=== PATIENT | male | born 1950 | race Caucasian/White ===

== ENCOUNTER 2018-05-21 11:43 | Inpatient (IN) | payer MEDICARE ==
[~2018-05-21] VITALS: Ht 167.6 cm; Wt 70.7 kg
[~2018-05-21 11:43] MED LIST: ACET325T14 PO; ALLO300T PO; CEFD300C37 PO; CYCL5TAB PO; GLIP5TAB10 PO; HYDR-3240 PO; LEVO125T PO; LOSA25TA25 PO; METF10002 PO; METO25TA35 PO; OMEP40CA6 PO; OXYC1TAB7 PO; SITA100T PO; TAMS-11 PO; UBID100C24 PO; metoprolol
[2018-05-21] MEDS ORDERED: SODIUM CHLORIDE FLUSH 10ML SYR IVF ONE (12:00)
[2018-05-21 12:25] LABS: MEAN CORPUSCULAR HEMOGLOBIN 30.3 pg (27.5-34.5); MEAN CORPUSCULAR HGB CONC 33.2 g/dL (33.2-36.2); MEAN CORPUSCULAR VOLUME 91.3 fL (81-97); MEAN PLATELET VOLUME 8.4 fL (7.4-10.4); PLATELET COUNT 428 x10^3/uL (130-400); RED CELL DISTRIBUTION WIDTH 13.6 % (9.4-14.8)
[2018-05-21] MEDS ORDERED: ONDANSETRON 2MG/ML, 2ML ONE (12:28)
[2018-05-21] MEDS ORDERED: HYDROmorphone 1 MG/ML, 1ML VIAL ONE (12:29)
[2018-05-21] MEDS ORDERED: HYDROmorphone 2 MG/ML, 1ML IVPush PRN (12:30)
[2018-05-21] MEDS ORDERED: ONDANSETRON 2MG/ML, 2ML IVPush ONE (12:30)
[2018-05-21 12:31] LABS: ALANINE AMINOTRANSFERASE 44 U/L (12-78); ANION GAP 9 mmol/L (5-15); CALCIUM 9.2 mg/dL (8.5-10.1); CHLORIDE 106 mmol/L (98-107); CREATININE 0.99 mg/dL (0.7-1.3)
[2018-05-21 12:33] LABS: ALKALINE PHOSPHATASE 128 U/L (45-117); BILIRUBIN,TOTAL 0.5 mg/dL (0.2-1.0); TOTAL PROTEIN 7.8 g/dL (6.4-8.2)
[2018-05-21 12:50] LABS: MD YES
[2018-05-21 12:53] LABS: <PLATELET ESTIMATE> INCREASED; <PLT MORPHOLOGY> NORMAL PLT MORPH; <RBC MORPHOLOGY> NORMAL; BANDS%(MANUAL) 16 % (0-7); LYMPH#(MANUAL) 0.52 x10^3/uL (1-3.4); LYMPHS% (MANUAL) 4 % (22-44); MONOS#(MANUAL) 0.92 x10^3/uL (0.3-2.7); MONOS% (MANUAL) 7 % (2-9); SEG#(MANUAL) 9.56 x10^3/uL (1.8-6.8); SEGS% (MANUAL) 73 % (42-75)
[2018-05-21] MEDS ORDERED: SODIUM CHLORIDE FLUSH 10ML SYR IVF PRN (14:30)
[2018-05-21] MEDS ORDERED: DEXTROSE 50%, 50ML SYRINGE IVPush PRN (15:30)
[2018-05-21] MEDS ORDERED: ONDANSETRON 2MG/ML, 2ML IVPush PRN (15:30)
[2018-05-21] MEDS ORDERED: ONDANSETRON ODT 4 MG PO PRN (15:30)
[2018-05-21] MEDS ORDERED: METHOCARBAMOL 500 MG TABLET PO PRN (15:30)
[2018-05-21] MEDS ORDERED: LABETALOL 5MG/ML, 20ML IVPush PRN (15:30)
[2018-05-21] MEDS ORDERED: morphine SULFATE 10 MG/ML, 1ML IVPush PRN (15:30)
[2018-05-21] MEDS ORDERED: CEFTRIAXONE PMX 2GM/50ML 50 ML ONE (15:30)
[2018-05-21] MEDS ORDERED: POLYETHYLENE GLYCOL 17 GM PACKET PO PRN (15:30)
[2018-05-21] MEDS ORDERED: DEXTROSE 4 GM TAB.CHEW PO PRN (15:30)
[2018-05-21] MEDS ORDERED: ENALAPRILAT 1.25 MG/ML, 2ML IVPush PRN (15:30)
[2018-05-21] MEDS ORDERED: GLUCAGON 1 MG IM PRN (15:30)
[2018-05-21] MEDS ORDERED: BISACODYL 10 MG SUPP PR PRN (15:30)
[2018-05-21] MEDS: CEFTRIAXONE PMX 2GM/50ML 50 ML IV SCH ×2 (15:35→17:03)
--- NOTE | 2018-05-21 15:42 | NUR ---
LATE NOTE 1430 DISCUSSION REGARDING NS BOLUS AND ABX WITH NO NEW ORDERS RECIEVED.
[2018-05-21 16:10] LABS: MICROSCOPIC NOT IND
[2018-05-21 16:12] LABS: CULTURE INDICATED? NO
[2018-05-21 16:24] VITALS: BP 130/79
[2018-05-21 16:58] LABS: TROPONIN I < 0.015 ng/mL (0.000-0.045)
[2018-05-21] MEDS: HYDROcodone/APAP 5/325 TABLET PO PRN (17:02)
[2018-05-21] MEDS: SODIUM CHLORIDE 0.9% 1,000 ML IV SCH (17:03)
[2018-05-21] MEDS: METRONIDAZOLE PMX 500MG/100ML 100 ML IV SCH (17:03)
[2018-05-21 17:15] VITALS: BP 130/79
[2018-05-21] MEDS: INSULIN LISPRO 100 UNITS/ML, PEN SQ-INSULIN SCH ×2 (18:00→20:55)
[2018-05-21 19:04] VITALS: BP 116/78
[2018-05-21 20:45] VITALS: BP 126/88
[2018-05-21] MEDS: METOPROLOL TARTRATE 25 MG TABLET PO SCH (20:52)
[2018-05-21] MEDS: ENOXAPARIN 40 MG/0.4 ML SQ SCH (20:54)
[2018-05-21] MEDS: DOCUSATE 100 MG CAPSULE PO SCH (20:57)
[2018-05-21] MEDS: SODIUM CHLORIDE FLUSH 10ML SYR IVF SCH (20:57)
[2018-05-22] MEDS: METRONIDAZOLE PMX 500MG/100ML 100 ML IV SCH (00:22)
[2018-05-22] MEDS: HYDROcodone/APAP 5/325 TABLET PO PRN (00:24)
[2018-05-22 00:29] VITALS: BP 122/80
[2018-05-22] MEDS: SODIUM CHLORIDE 0.9% 1,000 ML IV SCH ×2 (03:01→13:51)
[2018-05-22 04:57] LABS: BASOPHILS % (AUTO) 0 % (0-1); EOSINOPHILS % (AUTO) 0 % (1-7); LYMPHOCYTES % (AUTO) 5 % (22-44); MD NO; MEAN CORPUSCULAR HEMOGLOBIN 31.6 pg (27.5-34.5); MEAN CORPUSCULAR HGB CONC 34.2 g/dL (33.2-36.2); MEAN CORPUSCULAR VOLUME 92.2 fL (81-97); MEAN PLATELET VOLUME 8.5 fL (7.4-10.4); MONOCYTES # (AUTO) 0.72 x10^3/uL (0.2-0.8); MONOCYTES % (AUTO) 5 % (2-9); NEUTROPHILS # (AUTO) 14.06 x10^3/uL (1.8-6.8); NEUTROPHILS % (AUTO) 91 % (42-75); PLATELET COUNT 360 x10^3/uL (130-400); RED BLOOD COUNT 4.07 x10^6/uL (4.38-5.82)
[2018-05-22 05:10] LABS: CHLORIDE 109 mmol/L (98-107)
[2018-05-22 05:20] LABS: ALANINE AMINOTRANSFERASE 30 U/L (12-78); ALBUMIN 2.3 g/dL (3.4-5.0); ALKALINE PHOSPHATASE 100 U/L (45-117); ANION GAP 6 mmol/L (5-15); BILIRUBIN,TOTAL 0.5 mg/dL (0.2-1.0); CALCIUM 8.7 mg/dL (8.5-10.1); CREATININE 1.22 mg/dL (0.7-1.3); TOTAL PROTEIN 6.3 g/dL (6.4-8.2)
[2018-05-22] MEDS: INSULIN LISPRO 100 UNITS/ML, PEN SQ-INSULIN SCH ×4 (07:00→21:08)
[2018-05-22 07:08] VITALS: BP 113/67
[2018-05-22] MEDS: DOCUSATE 100 MG CAPSULE PO SCH ×2 (08:00→21:25)
[2018-05-22] MEDS: SODIUM CHLORIDE FLUSH 10ML SYR IVF SCH ×2 (08:20→21:25)
[2018-05-22] MEDS: PIPERACILLIN/TAZO/PMX 3.375GM 50 ML IV SCH ×2 (11:21→20:34)
[2018-05-22] MEDS: LEVOTHYROXINE 125 MCG TABLET PO SCH (11:44)
[2018-05-22] MEDS: METOPROLOL TARTRATE 25 MG TABLET PO SCH ×2 (11:44→21:07)
[2018-05-22] MEDS: ALLOPURINOL 300 MG TABLET PO SCH (11:44)
[2018-05-22] MEDS: LOSARTAN 25MG TABLET PO SCH (11:44)
[2018-05-22] MEDS: FAMOTIDINE 20 MG/2 ML IVPush SCH ×2 (12:03→21:07)
[2018-05-22 13:16] VITALS: BP 150/86
[2018-05-22 18:52] LABS: CLOSTRIDIUM DIFFICILE ANTIGEN NEGATIVE; CLOSTRIDIUM DIFFICILE TOXIN NEGATIVE (Negative)
[2018-05-22 20:19] VITALS: BP 143/83
[2018-05-22] MEDS: ACETAMINOPHEN 325 MG TABLET PO PRN (21:07)
[2018-05-22] MEDS: ENOXAPARIN 40 MG/0.4 ML SQ SCH (21:25)
[2018-05-22 23:39] VITALS: BP 118/71
[2018-05-23 00:29] VITALS: BP 121/76
[2018-05-23] MEDS: SODIUM CHLORIDE 0.9% 1,000 ML IV SCH (01:43)
[2018-05-23] MEDS: PIPERACILLIN/TAZO/PMX 3.375GM 50 ML IV SCH ×3 (03:39→22:28)
[2018-05-23 06:55] LABS: MEAN CORPUSCULAR HEMOGLOBIN 31.3 pg (27.5-34.5); MEAN CORPUSCULAR HGB CONC 33.8 g/dL (33.2-36.2); MEAN CORPUSCULAR VOLUME 92.7 fL (81-97); MEAN PLATELET VOLUME 8.6 fL (7.4-10.4); PLATELET COUNT 364 x10^3/uL (130-400); RED BLOOD COUNT 3.54 x10^6/uL (4.38-5.82); RED CELL DISTRIBUTION WIDTH 14.4 % (9.4-14.8)
[2018-05-23 07:07] LABS: ALANINE AMINOTRANSFERASE 24 U/L (12-78); ALBUMIN 2.1 g/dL (3.4-5.0); ANION GAP 7 mmol/L (5-15); CALCIUM 8.5 mg/dL (8.5-10.1); CHLORIDE 112 mmol/L (98-107); CREATININE 0.91 mg/dL (0.7-1.3)
[2018-05-23 07:09] LABS: ALKALINE PHOSPHATASE 94 U/L (45-117); BILIRUBIN,TOTAL 0.7 mg/dL (0.2-1.0)
[2018-05-23 07:35] LABS: MD YES
[2018-05-23 07:38] LABS: <PLATELET ESTIMATE> ADEQUATE; <PLT MORPHOLOGY> NORMAL PLT MORPH; <RBC MORPHOLOGY> NORMAL; BAND#(MANUAL) 1.07 x10^3/uL; BANDS%(MANUAL) 6 % (0-7); LYMPH#(MANUAL) 1.25 x10^3/uL (1-3.4); LYMPHS% (MANUAL) 7 % (22-44); MONOS#(MANUAL) 0.89 x10^3/uL (0.3-2.7); MONOS% (MANUAL) 5 % (2-9); SEGS% (MANUAL) 82 % (42-75)
[2018-05-23 07:51] VITALS: BP 124/68
[2018-05-23] MEDS: SODIUM CHLORIDE FLUSH 10ML SYR IVF SCH ×2 (09:00→22:28)
[2018-05-23] MEDS: DOCUSATE 100 MG CAPSULE PO SCH ×2 (09:00→21:00)
[2018-05-23] MEDS: LOSARTAN 25MG TABLET PO SCH (10:04)
[2018-05-23] MEDS: LEVOTHYROXINE 125 MCG TABLET PO SCH (10:04)
[2018-05-23] MEDS: PANTOPRAZOLE 40 MG IV IVPush SCH (10:05)
[2018-05-23] MEDS: METOPROLOL TARTRATE 25 MG TABLET PO SCH ×2 (10:05→22:29)
[2018-05-23] MEDS: FAMOTIDINE 20 MG/2 ML IVPush SCH ×2 (10:05→22:28)
[2018-05-23] MEDS: INSULIN LISPRO 100 UNITS/ML, PEN SQ-INSULIN SCH ×4 (10:06→22:41)
[2018-05-23] MEDS: HEPARIN 5,000 UNITS/ML, 1ML SQ SCH ×2 (10:31→22:28)
[2018-05-23] MEDS: ALLOPURINOL 300 MG TABLET PO SCH (10:32)
[2018-05-23 14:01] VITALS: BP 124/70
[2018-05-23] MEDS ORDERED: BUPIVACAINE/PF-EPI 0.5% 1:200K ONE (14:40)
[2018-05-23] MEDS ORDERED: SODIUM CHLORIDE 0.9% 1,000 ML IV SCH (15:09)
[2018-05-23] MEDS ORDERED: MIDAZOLAM 1 MG/ML, 2ML ONE (15:16)
[2018-05-23] MEDS ORDERED: FENTANYL PF 250 MCG/5ML ONE (15:16)
[2018-05-23] MEDS ORDERED: HALOPERIDOL 5 MG/ML IV PRN (16:00)
[2018-05-23] MEDS ORDERED: hydrALAzine 20 MG/ML, 1ML IV PRN (16:00)
[2018-05-23] MEDS ORDERED: MEPERIDINE/PF 25MG/0.5ML IVPush PRN (16:00)
[2018-05-23] MEDS ORDERED: FENTANYL PF 100 MCG/2ML IV PRN (16:00)
[2018-05-23] MEDS ORDERED: PROMETHAZINE 25 MG/ML, 1ML IV PRN (16:00)
[2018-05-23] MEDS ORDERED: OXYcodone 5 MG/5 ML ORAL.SOL UDC PO PRN (16:00)
[2018-05-23] MEDS ORDERED: HYDROmorphone 2 MG/ML, 1ML IVPush PRN (16:00)
[2018-05-23] MEDS ORDERED: MEPERIDINE/PF 50 MG/ML ONE (16:12)
[2018-05-23] MEDS ORDERED: METOPROLOL 1 MG/ML, 5ML ONE (16:30)
[2018-05-23] MEDS ORDERED: ONDANSETRON 2MG/ML, 2ML ONE (16:30)
[2018-05-23] MEDS ORDERED: PROPOFOL 10 MG/ML, 20ML ONE (16:30)
[2018-05-23] MEDS ORDERED: LIDOCAINE-MPF 2% ,5ML ONE (16:30)
[2018-05-23] MEDS ORDERED: ROCURONIUM 10MG/ML,5ML ONE (16:30)
[2018-05-23] MEDS ORDERED: DEXAMETHASONE 4 MG/ML, 1ML ONE (16:30)
[2018-05-23] MEDS ORDERED: FENTANYL PF 100 MCG/2ML ONE (16:37)
[2018-05-23] MEDS ORDERED: OXYcodone 5 MG/5 ML ORAL.SOL UDC ONE (17:13)
[2018-05-23 20:06] VITALS: BP 126/72
[2018-05-24 00:52] VITALS: BP 127/78
[2018-05-24 03:41] VITALS: BP 125/74
[2018-05-24] MEDS: PIPERACILLIN/TAZO/PMX 3.375GM 50 ML IV SCH ×3 (06:00→23:36)
[2018-05-24] MEDS: HEPARIN 5,000 UNITS/ML, 1ML SQ SCH ×3 (06:01→23:36)
[2018-05-24 06:58] LABS: ALANINE AMINOTRANSFERASE 23 U/L (12-78); ALBUMIN 1.9 g/dL (3.4-5.0); ANION GAP 7 mmol/L (5-15); CALCIUM 8.4 mg/dL (8.5-10.1); CHLORIDE 111 mmol/L (98-107)
[2018-05-24 07:00] LABS: ALKALINE PHOSPHATASE 113 U/L (45-117); BILIRUBIN,TOTAL 0.4 mg/dL (0.2-1.0); TOTAL PROTEIN 5.9 g/dL (6.4-8.2)
[2018-05-24 08:23] LABS: MEAN CORPUSCULAR HEMOGLOBIN 30.6 pg (27.5-34.5); MEAN CORPUSCULAR HGB CONC 33.1 g/dL (33.2-36.2); MEAN CORPUSCULAR VOLUME 92.2 fL (81-97); MEAN PLATELET VOLUME 8.4 fL (7.4-10.4); PLATELET COUNT 432 x10^3/uL (130-400); RED BLOOD COUNT 3.72 x10^6/uL (4.38-5.82); RED CELL DISTRIBUTION WIDTH 14.3 % (9.4-14.8)
[2018-05-24] MEDS: INSULIN LISPRO 100 UNITS/ML, PEN SQ-INSULIN SCH ×4 (08:43→21:46)
[2018-05-24] MEDS: FAMOTIDINE 20 MG/2 ML IVPush SCH ×2 (08:44→21:54)
[2018-05-24] MEDS: PANTOPRAZOLE 40 MG IV IVPush SCH (08:44)
[2018-05-24] MEDS: LOSARTAN 25MG TABLET PO SCH (08:45)
[2018-05-24] MEDS: DOCUSATE 100 MG CAPSULE PO SCH ×3 (08:45→21:46)
[2018-05-24] MEDS: LEVOTHYROXINE 125 MCG TABLET PO SCH (08:45)
[2018-05-24] MEDS: ALLOPURINOL 300 MG TABLET PO SCH (08:45)
[2018-05-24] MEDS: SODIUM CHLORIDE FLUSH 10ML SYR IVF SCH ×3 (08:46→21:54)
[2018-05-24 08:50] LABS: BASOPHILS % (AUTO) 0 % (0-1); EOSINOPHILS % (AUTO) 0 % (1-7); LYMPHOCYTES # (AUTO) 0.39 x10^3/uL (1-3.4); LYMPHOCYTES % (AUTO) 2 % (22-44); MD SCAN; MONOCYTES # (AUTO) 0.47 x10^3/uL (0.2-0.8); MONOCYTES % (AUTO) 3 % (2-9); NEUTROPHILS # (AUTO) 14.95 x10^3/uL (1.8-6.8); NEUTROPHILS % (AUTO) 95 % (42-75)
[2018-05-24] MEDS ORDERED: metFORMIN 500 MG TABLET PO SCH (09:00)
[2018-05-24] MEDS: METOPROLOL TARTRATE 25 MG TABLET PO SCH ×2 (09:00→21:46)
[2018-05-24 10:00] VITALS: BP 117/66
[2018-05-24 15:39] VITALS: BP 116/68
[2018-05-24 19:21] VITALS: BP 103/58
[2018-05-24] MEDS ORDERED: DEXTROSE 50%, 50ML SYRINGE IVPush PRN (20:30)
[2018-05-24] MEDS ORDERED: DEXTROSE 4 GM TAB.CHEW PO PRN (20:30)
[2018-05-24] MEDS ORDERED: GLUCAGON 1 MG IM PRN (20:30)
[2018-05-24] MEDS: D5%-0.45% NACL 1,000 ML IV SCH (21:55)
[2018-05-25 01:13] VITALS: BP 129/74
[2018-05-25 06:22] LABS: CHLORIDE 110 mmol/L (98-107)
[2018-05-25 06:37] LABS: ALANINE AMINOTRANSFERASE 21 U/L (12-78); ALKALINE PHOSPHATASE 87 U/L (45-117); ANION GAP 8 mmol/L (5-15); BILIRUBIN,TOTAL 0.4 mg/dL (0.2-1.0); CALCIUM 8.6 mg/dL (8.5-10.1); CREATININE 0.85 mg/dL (0.7-1.3); TOTAL PROTEIN 6.1 g/dL (6.4-8.2)
[2018-05-25 06:38] LABS: MEAN CORPUSCULAR HEMOGLOBIN 31.2 pg (27.5-34.5); MEAN CORPUSCULAR HGB CONC 34.3 g/dL (33.2-36.2); MEAN CORPUSCULAR VOLUME 91.1 fL (81-97); MEAN PLATELET VOLUME 8.4 fL (7.4-10.4); PLATELET COUNT 427 x10^3/uL (130-400); RED BLOOD COUNT 3.61 x10^6/uL (4.38-5.82); RED CELL DISTRIBUTION WIDTH 14.5 % (9.4-14.8)
[2018-05-25 07:00] VITALS: BP 128/75
[2018-05-25 07:15] LABS: BASOPHILS # (AUTO) 0.01 x10^3/uL (0-0.1); BASOPHILS % (AUTO) 0 % (0-1); EOSINOPHILS # (AUTO) 0.16 x10^3/uL (0-0.4); EOSINOPHILS % (AUTO) 2 % (1-7); LYMPHOCYTES # (AUTO) 0.88 x10^3/uL (1-3.4); LYMPHOCYTES % (AUTO) 10 % (22-44); MD SCAN; MONOCYTES # (AUTO) 0.65 x10^3/uL (0.2-0.8); MONOCYTES % (AUTO) 7 % (2-9); NEUTROPHILS # (AUTO) 7.33 x10^3/uL (1.8-6.8); NEUTROPHILS % (AUTO) 81 % (42-75)
[2018-05-25] MEDS: INSULIN LISPRO 100 UNITS/ML, PEN SQ-INSULIN SCH ×4 (07:40→20:52)
[2018-05-25] MEDS: HEPARIN 5,000 UNITS/ML, 1ML SQ SCH ×3 (07:41→23:25)
[2018-05-25] MEDS: PIPERACILLIN/TAZO/PMX 3.375GM 50 ML IV SCH ×3 (07:41→23:24)
[2018-05-25] MEDS: PANTOPRAZOLE 40 MG IV IVPush SCH (07:42)
[2018-05-25] MEDS: FAMOTIDINE 20 MG/2 ML IVPush SCH ×2 (07:42→20:51)
[2018-05-25] MEDS: SODIUM CHLORIDE FLUSH 10ML SYR IVF SCH ×4 (07:43→20:58)
[2018-05-25] MEDS: D5%-0.45% NACL 1,000 ML IV SCH ×2 (07:44→21:53)
[2018-05-25] MEDS: DOCUSATE 100 MG CAPSULE PO SCH ×2 (09:00→20:52)
[2018-05-25] MEDS: ALLOPURINOL 300 MG TABLET PO SCH (09:00)
[2018-05-25] MEDS: LOSARTAN 25MG TABLET PO SCH (09:00)
[2018-05-25] MEDS: LEVOTHYROXINE 125 MCG TABLET PO SCH (09:00)
[2018-05-25] MEDS: METOPROLOL TARTRATE 25 MG TABLET PO SCH ×2 (09:00→20:52)
[2018-05-25] MEDS ORDERED: FENTANYL PF 100 MCG/2ML ONE (10:25)
[2018-05-25] MEDS ORDERED: FENTANYL PF 100 MCG/2ML IV PRN (10:30)
[2018-05-25] MEDS ORDERED: HYDROmorphone 2 MG/ML, 1ML IVPush PRN (10:30)
[2018-05-25] MEDS ORDERED: ONDANSETRON ODT 8 MG PO PRN (10:30)
[2018-05-25] MEDS ORDERED: ONDANSETRON 2MG/ML, 2ML IV PRN (10:30)
[2018-05-25] MEDS ORDERED: OXYcodone 5 MG/5 ML ORAL.SOL UDC PO PRN (10:30)
[2018-05-25] MEDS ORDERED: ACETAMINOPHEN 325 MG TABLET PO PRN (10:30)
[2018-05-25] MEDS ORDERED: ONDANSETRON 2MG/ML, 2ML ONE (10:43)
[2018-05-25] MEDS ORDERED: GLYCOPYRROLATE 0.2MG/1ML, 5ML ONE (10:43)
[2018-05-25] MEDS ORDERED: SUCCINYLCHOLINE 20 MG/ML, 10ML ONE (10:43)
[2018-05-25] MEDS ORDERED: ROCURONIUM 10MG/ML,5ML ONE (10:43)
[2018-05-25] MEDS ORDERED: PROPOFOL 10 MG/ML, 20ML ONE (10:43)
[2018-05-25] MEDS ORDERED: CEFAZOLIN 1,000 MG ONE (10:43)
[2018-05-25] MEDS ORDERED: DEXAMETHASONE 4 MG/ML, 1ML ONE (10:43)
[2018-05-25] MEDS ORDERED: NEOSTIGMINE 1 MG/ML, 10ML ONE (10:43)
[2018-05-25] MEDS ORDERED: OMNIPAQUE 350 MG/ML, 50 ML BOTTLE ONE (11:11)
[2018-05-25 13:39] VITALS: BP 147/80
[2018-05-25 20:13] VITALS: BP 139/79
[2018-05-25] MEDS: ACETAMINOPHEN 325 MG TABLET PO PRN (20:57)
[2018-05-26 01:48] VITALS: BP 142/86
[2018-05-26 05:50] LABS: BASOPHILS # (AUTO) 0.01 x10^3/uL (0-0.1); BASOPHILS % (AUTO) 0 % (0-1); EOSINOPHILS # (AUTO) 0.03 x10^3/uL (0-0.4); EOSINOPHILS % (AUTO) 0 % (1-7); LYMPHOCYTES % (AUTO) 9 % (22-44); MD NO; MEAN CORPUSCULAR HEMOGLOBIN 30.6 pg (27.5-34.5); MEAN CORPUSCULAR HGB CONC 33.9 g/dL (33.2-36.2); MEAN CORPUSCULAR VOLUME 90.4 fL (81-97); MEAN PLATELET VOLUME 8.2 fL (7.4-10.4); MONOCYTES # (AUTO) 0.66 x10^3/uL (0.2-0.8); MONOCYTES % (AUTO) 9 % (2-9); NEUTROPHILS # (AUTO) 6.26 x10^3/uL (1.8-6.8); NEUTROPHILS % (AUTO) 82 % (42-75); PLATELET COUNT 479 x10^3/uL (130-400); RED BLOOD COUNT 3.91 x10^6/uL (4.38-5.82); RED CELL DISTRIBUTION WIDTH 14.1 % (9.4-14.8)
[2018-05-26 05:59] LABS: CHLORIDE 110 mmol/L (98-107)
[2018-05-26 06:15] LABS: ALANINE AMINOTRANSFERASE 33 U/L (12-78); ALBUMIN 2.2 g/dL (3.4-5.0); ALKALINE PHOSPHATASE 107 U/L (45-117); ANION GAP 6 mmol/L (5-15); BILIRUBIN,TOTAL 0.9 mg/dL (0.2-1.0); CALCIUM 8.3 mg/dL (8.5-10.1); CREATININE 0.84 mg/dL (0.7-1.3); TOTAL PROTEIN 6.3 g/dL (6.4-8.2)
[2018-05-26] MEDS: PIPERACILLIN/TAZO/PMX 3.375GM 50 ML IV SCH ×3 (07:55→23:21)
[2018-05-26] MEDS: HEPARIN 5,000 UNITS/ML, 1ML SQ SCH ×3 (07:55→23:26)
[2018-05-26 07:59] VITALS: BP 124/79
[2018-05-26] MEDS: INSULIN LISPRO 100 UNITS/ML, PEN SQ-INSULIN SCH ×4 (08:00→20:32)
[2018-05-26] MEDS: SODIUM CHLORIDE FLUSH 10ML SYR IVF SCH ×3 (09:00→20:32)
[2018-05-26] MEDS: ALLOPURINOL 300 MG TABLET PO SCH (10:23)
[2018-05-26] MEDS: METOPROLOL TARTRATE 25 MG TABLET PO SCH ×2 (10:24→20:31)
[2018-05-26] MEDS: LOSARTAN 25MG TABLET PO SCH (10:25)
[2018-05-26] MEDS: metFORMIN 500 MG TABLET PO SCH ×2 (10:26→18:25)
[2018-05-26] MEDS: FAMOTIDINE 20 MG/2 ML IVPush SCH ×2 (10:27→20:31)
[2018-05-26] MEDS: LEVOTHYROXINE 125 MCG TABLET PO SCH (10:27)
[2018-05-26] MEDS: PANTOPRAZOLE 40 MG IV IVPush SCH (10:28)
[2018-05-26] MEDS: DOCUSATE 100 MG CAPSULE PO SCH ×2 (10:30→20:32)
[2018-05-26 14:05] VITALS: BP 145/82
[2018-05-26] MEDS: PEPCID + PROTONIX MC SCH ×2 (18:41→23:32)
[2018-05-26 19:32] VITALS: BP 143/79
[2018-05-27 00:15] VITALS: BP 139/82
[2018-05-27 05:25] LABS: BASOPHILS % (AUTO) 0 % (0-1); EOSINOPHILS # (AUTO) 0.03 x10^3/uL (0-0.4); EOSINOPHILS % (AUTO) 0 % (1-7); LYMPHOCYTES # (AUTO) 0.78 x10^3/uL (1-3.4); LYMPHOCYTES % (AUTO) 8 % (22-44); MD NO; MEAN CORPUSCULAR HEMOGLOBIN 30.5 pg (27.5-34.5); MEAN CORPUSCULAR HGB CONC 33.9 g/dL (33.2-36.2); MEAN CORPUSCULAR VOLUME 90.1 fL (81-97); MEAN PLATELET VOLUME 8.2 fL (7.4-10.4); MONOCYTES # (AUTO) 0.73 x10^3/uL (0.2-0.8); MONOCYTES % (AUTO) 7 % (2-9); NEUTROPHILS # (AUTO) 8.29 x10^3/uL (1.8-6.8); NEUTROPHILS % (AUTO) 84 % (42-75); PLATELET COUNT 467 x10^3/uL (130-400); RED BLOOD COUNT 3.81 x10^6/uL (4.38-5.82); RED CELL DISTRIBUTION WIDTH 13.7 % (9.4-14.8)
[2018-05-27] MEDS ORDERED: PANTOPROZOLE 40MG TABLET PO SCH (06:00)
[2018-05-27 08:06] VITALS: BP 152/80
[2018-05-27] MEDS: PIPERACILLIN/TAZO/PMX 3.375GM 50 ML IV SCH ×3 (08:09→23:16)
[2018-05-27] MEDS: SODIUM CHLORIDE FLUSH 10ML SYR IVF SCH ×2 (08:10→20:51)
[2018-05-27] MEDS: INSULIN LISPRO 100 UNITS/ML, PEN SQ-INSULIN SCH ×4 (08:10→20:54)
[2018-05-27] MEDS: metFORMIN 500 MG TABLET PO SCH ×2 (08:10→17:07)
[2018-05-27] MEDS: HEPARIN 5,000 UNITS/ML, 1ML SQ SCH ×3 (08:10→23:16)
[2018-05-27] MEDS: LOSARTAN 25MG TABLET PO SCH (09:45)
[2018-05-27] MEDS: LEVOTHYROXINE 125 MCG TABLET PO SCH (09:45)
[2018-05-27] MEDS: DOCUSATE 100 MG CAPSULE PO SCH ×2 (09:45→20:48)
[2018-05-27] MEDS: FAMOTIDINE 20 MG/2 ML IVPush SCH (09:45)
[2018-05-27] MEDS: METOPROLOL TARTRATE 25 MG TABLET PO SCH ×2 (09:46→20:51)
[2018-05-27] MEDS: ALLOPURINOL 300 MG TABLET PO SCH (09:46)
[2018-05-27 12:30] VITALS: BP 139/78
[2018-05-27] MEDS: ACETAMINOPHEN 325 MG TABLET PO PRN (20:51)
[2018-05-27 20:55] VITALS: BP 118/71
[2018-05-28 01:38] VITALS: BP 120/77
[2018-05-28] MEDS: OMEPRAZOLE 20 MG CAPSULE.DR PO SCH (05:27)
[2018-05-28] MEDS: LEVOTHYROXINE 125 MCG TABLET PO SCH (05:27)
[2018-05-28] MEDS: PIPERACILLIN/TAZO/PMX 3.375GM 50 ML IV SCH (07:53)
[2018-05-28] MEDS: LOSARTAN 25MG TABLET PO SCH (07:54)
[2018-05-28] MEDS: metFORMIN 500 MG TABLET PO SCH ×2 (07:54→16:31)
[2018-05-28] MEDS: DOCUSATE 100 MG CAPSULE PO SCH ×2 (07:54→20:51)
[2018-05-28] MEDS: INSULIN LISPRO 100 UNITS/ML, PEN SQ-INSULIN SCH ×4 (07:54→20:53)
[2018-05-28] MEDS: HEPARIN 5,000 UNITS/ML, 1ML SQ SCH ×3 (07:54→23:31)
[2018-05-28] MEDS: METOPROLOL TARTRATE 25 MG TABLET PO SCH ×2 (07:54→20:54)
[2018-05-28] MEDS: ALLOPURINOL 300 MG TABLET PO SCH (07:54)
[2018-05-28] MEDS: SODIUM CHLORIDE FLUSH 10ML SYR IVF SCH ×2 (07:55→20:52)
[2018-05-28 07:56] VITALS: BP 122/74
[2018-05-28] MEDS: CIPROFLOXACIN 750 MG TABLET PO SCH ×2 (10:58→23:30)
[2018-05-28] MEDS ORDERED: CIPR750T PO (14:50)
[2018-05-28] MEDS ORDERED: ACET325T14 PO (14:50)
[2018-05-28 16:30] VITALS: BP 116/62
[2018-05-28 20:03] VITALS: BP 110/67
[2018-05-28] MEDS: ACETAMINOPHEN 325 MG TABLET PO PRN (20:54)
[2018-05-29 00:51] VITALS: BP 131/72
[2018-05-29 05:33] LABS: BASOPHILS % (AUTO) 0 % (0-1); EOSINOPHILS # (AUTO) 0.08 x10^3/uL (0-0.4); EOSINOPHILS % (AUTO) 1 % (1-7); LYMPHOCYTES # (AUTO) 0.82 x10^3/uL (1-3.4); LYMPHOCYTES % (AUTO) 10 % (22-44); MD NO; MEAN CORPUSCULAR HEMOGLOBIN 30.7 pg (27.5-34.5); MEAN CORPUSCULAR HGB CONC 33.9 g/dL (33.2-36.2); MEAN CORPUSCULAR VOLUME 90.6 fL (81-97); MEAN PLATELET VOLUME 8.1 fL (7.4-10.4); MONOCYTES # (AUTO) 0.73 x10^3/uL (0.2-0.8); MONOCYTES % (AUTO) 9 % (2-9); NEUTROPHILS # (AUTO) 6.74 x10^3/uL (1.8-6.8); NEUTROPHILS % (AUTO) 81 % (42-75); PLATELET COUNT 469 x10^3/uL (130-400); RED BLOOD COUNT 3.71 x10^6/uL (4.38-5.82); RED CELL DISTRIBUTION WIDTH 14.1 % (9.4-14.8)
[2018-05-29 05:44] LABS: CHLORIDE 108 mmol/L (98-107)
[2018-05-29 05:45] LABS: HCT (SEDRATE) 33.6 % (39.2-51.8)
[2018-05-29 05:55] LABS: ALANINE AMINOTRANSFERASE 31 U/L (12-78); ALBUMIN 2.2 g/dL (3.4-5.0); ALKALINE PHOSPHATASE 87 U/L (45-117); ANION GAP 5 mmol/L (5-15); BILIRUBIN,TOTAL 0.4 mg/dL (0.2-1.0); CALCIUM 8.4 mg/dL (8.5-10.1); CREATININE 0.88 mg/dL (0.7-1.3); TOTAL PROTEIN 6.5 g/dL (6.4-8.2)
[2018-05-29] MEDS: OMEPRAZOLE 20 MG CAPSULE.DR PO SCH (06:04)
[2018-05-29 07:10] VITALS: BP_SYST 127; BP_SYST 137; BP_DIAS 100; BP_DIAS 83
[2018-05-29] MEDS: INSULIN LISPRO 100 UNITS/ML, PEN SQ-INSULIN SCH ×2 (07:46→10:49)
[2018-05-29] MEDS: LOSARTAN 25MG TABLET PO SCH (07:47)
[2018-05-29] MEDS: metFORMIN 500 MG TABLET PO SCH (07:47)
[2018-05-29] MEDS: HEPARIN 5,000 UNITS/ML, 1ML SQ SCH (07:47)
[2018-05-29] MEDS: SODIUM CHLORIDE FLUSH 10ML SYR IVF SCH (07:47)
[2018-05-29] MEDS: ALLOPURINOL 300 MG TABLET PO SCH (07:47)
[2018-05-29] MEDS: CIPROFLOXACIN 750 MG TABLET PO SCH (07:47)
[2018-05-29] MEDS: LEVOTHYROXINE 125 MCG TABLET PO SCH (07:47)
[2018-05-29] MEDS: METOPROLOL TARTRATE 25 MG TABLET PO SCH (07:47)
[2018-05-29] MEDS: DOCUSATE 100 MG CAPSULE PO SCH (07:48)
== END 2018-05-29 11:30 | disposition home or self-care (01) | DRG 393 ==
LOC: ED 12:21 → EDIP 14:27 → 4WST 16:05 → 4NOR 05-25 12:53 → DCLOUNGE 05-29 11:12
PROVIDERS: ADMIT Internal Medicine; ATTEND Internal Medicine
PROC: 0W9G40Z Drainage of Peritoneal Cavity with Drainage Device, Percutaneous Endoscopic Approach (ICD-10-PCS; principal; 2018-05-23 16:00)
PROC: 0F798DZ Dilation of Common Bile Duct with Intraluminal Device, Via Natural or Artificial Opening Endoscopic (ICD-10-PCS; 2018-05-25)
PROC: 0FC98ZZ Extirpation of Matter from Common Bile Duct, Via Natural or Artificial Opening Endoscopic (ICD-10-PCS; 2018-05-25)
PROC: BF131ZZ Fluoroscopy of Gallbladder and Bile Ducts using Low Osmolar Contrast (ICD-10-PCS; 2018-05-25)
DX: K91.89 Other postprocedural complications and disorders of digestive system (principal); A41.9 Sepsis, unspecified organism; K65.9 Peritonitis, unspecified; E44.0 Moderate protein-calorie malnutrition; K80.42 Calculus of bile duct with acute cholecystitis without obstruction; Y83.8 Other surgical procedures as the cause of abnormal reaction of the patient, or of later complication, without mention of misadventure at the time of the procedure; D63.8 Anemia in other chronic diseases classified elsewhere; E03.9 Hypothyroidism, unspecified; E11.65 Type 2 diabetes mellitus with hyperglycemia; E78.5 Hyperlipidemia, unspecified; G89.18 Other acute postprocedural pain; I10 Essential (primary) hypertension; K21.9 Gastro-esophageal reflux disease without esophagitis; M10.9 Gout, unspecified; Z79.2 Long term (current) use of antibiotics; Z83.3 Family history of diabetes mellitus; Z85.828 Personal history of other malignant neoplasm of skin; Z87.442 Personal history of urinary calculi; Z90.49 Acquired absence of other specified parts of digestive tract; Z96.652 Presence of left artificial knee joint
CPT/HCPCS: 36415; 70450; 71045; 74245; 74328; 76705; 78226; 80053; 81003; 82962; 83605; 83735; 84100; 84145; 84484; 85025; 85651; 86140; 87015; 87040; 87070; 87075; 87077; 87102; 87116; 87186; 87205; 87206; 87324; 93005; 96374; 96375; 99285; C1729; G0378; J0690; J0696; J1100; J1170; J1644; J1650; J2175; J2250; J2405; J2543; J2704; J2710; J3010; Q9967; A9537; C1769; C1894; C2625; C9113; C9898; J0330; J1815; J3490; J7030

== ENCOUNTER 2018-08-24 06:34 | Day surgery (SDC) | payer MEDICARE ==
[~2018-08-24] VITALS: Ht 167.6 cm; Wt 74.1 kg
[~2018-08-24 06:34] MED LIST changes: +CIPR750T PO
[2018-08-24] MEDS ORDERED: LACTATED RINGERS 1,000 ML IV SCH (07:04)
[2018-08-24 07:11] VITALS: BP 131/90
[2018-08-24] MEDS ORDERED: FENTANYL PF 250 MCG/5ML ONE (07:53)
[2018-08-24] MEDS ORDERED: GLYCOPYRROLATE 0.2MG/1ML, 5ML ONE (07:54)
[2018-08-24] MEDS ORDERED: NEOSTIGMINE 1 MG/ML, 10ML ONE (07:54)
[2018-08-24] MEDS ORDERED: PROPOFOL 10 MG/ML, 20ML ONE (07:54)
[2018-08-24] MEDS ORDERED: CEFAZOLIN 1,000 MG ONE (07:54)
[2018-08-24] MEDS ORDERED: ROCURONIUM 10MG/ML,5ML ONE (07:54)
[2018-08-24] MEDS ORDERED: OXYcodone 5 MG/5 ML ORAL.SOL UDC PO PRN (08:30)
[2018-08-24] MEDS ORDERED: MEPERIDINE/PF 25MG/0.5ML IVPush PRN (08:30)
[2018-08-24] MEDS ORDERED: ONDANSETRON 2MG/ML, 2ML IV PRN (08:30)
[2018-08-24] MEDS ORDERED: FENTANYL PF 100 MCG/2ML IV PRN (08:30)
[2018-08-24] MEDS ORDERED: ONDANSETRON ODT 8 MG PO PRN (08:30)
[2018-08-24] MEDS ORDERED: HYDROmorphone 2 MG/ML, 1ML IVPush PRN (08:30)
[2018-08-24] MEDS ORDERED: SUGAMMADEX 200 MG/2 ML IVPush ONE (08:39)
[2018-08-24] MEDS ORDERED: OMNIPAQUE 350 MG/ML, 50 ML BOTTLE ONE (08:57)
== END 2018-08-24 10:25 | disposition home or self-care (01) ==
LOC: OUT 06:34
PROVIDERS: ATTEND Internal Medicine Gastroenterology
DX: K80.50 Calculus of bile duct without cholangitis or cholecystitis without obstruction (principal); K91.89 Other postprocedural complications and disorders of digestive system; E11.9 Type 2 diabetes mellitus without complications; M10.9 Gout, unspecified; I10 Essential (primary) hypertension; E03.9 Hypothyroidism, unspecified; Z90.49 Acquired absence of other specified parts of digestive tract
CPT/HCPCS: 43264; 43276; 74328; 82962; 93005; J0690; J2704; J2710; J3010; J7120; Q9967

== ENCOUNTER → 2019-10-12 | Outpatient (CLI) | payer MEDICARE ==
[~2019-10-12] MED LIST changes: +OMEP40CA42 PO; -OMEP40CA6 PO
== END | disposition home or self-care (01) ==
LOC: CFH 12:46
PROVIDERS: ATTEND Internal Medicine Cardiovascular Disease
DX: I08.0 Rheumatic disorders of both mitral and aortic valves (principal); I10 Essential (primary) hypertension
CPT/HCPCS: 93306